=== PATIENT | female | born 1970 | race African-American/Black ===

== ENCOUNTER 2017-08-30 03:34 | Emergency (ER) | payer MEDICAID ==
[~2017-08-30] VITALS: Ht 160 cm; Wt 77.0 kg
[2017-08-30] MEDS ORDERED: HYDROCODONE/ACETAMINOPHEN 5/325MG TABLET PO ONE (06:30)
[2017-08-30] MEDS ORDERED: IBUPROFEN 600MG TABLET PO ONE (06:30)
[2017-08-30 07:12] LABS: BASOPHILS % 0.5 % (0.0-2.0); EOSINOPHILS % 0.2 % (0.0-5.0); HEMATOCRIT. 43.8 % (36.0-48.0); HEMOGLOBIN. 14.3 g/dL (12.0-16.0); LYMPHOCYTES % 14.2 % (20.0-50.0); MEAN CORPUSCULAR HEMOGLOBIN 27.7 pg (28.0-32.0); MEAN CORPUSCULAR VOLUME 84.5 fL (81.0-99.0); MEAN PLATELET VOLUME 10.1 fl (7.4-10.4); MONOCYTES % 6.1 % (2.0-8.0); PLATELET 204 x1000/uL (130-400); RED BLOOD CELL COUNT 5.18 mill/uL (4.2-5.4); RED CELL DISTRIBUTION WIDTH 14.4 % (11.6-14.6)
[2017-08-30 07:14] LABS: CHLORIDE 106 mEq/L (98-107)
[2017-08-30 07:52] LABS: HCG SCREEN NEGATIVE
[2017-08-30 10:00] VITALS: BP 145/67
== END 2017-08-30 10:00 | disposition home or self-care (01) ==
LOC: ER 04:16
DX: S06.891A Other specified intracranial injury with loss of consciousness of 30 minutes or less, initial encounter (principal); S02.2XXA Fracture of nasal bones, initial encounter for closed fracture; S62.397A Other fracture of fifth metacarpal bone, left hand, initial encounter for closed fracture; S50.311A Abrasion of right elbow, initial encounter; J45.909 Unspecified asthma, uncomplicated; Z90.49 Acquired absence of other specified parts of digestive tract; V43.52XA Car driver injured in collision with other type car in traffic accident, initial encounter; Y93.89 Activity, other specified; Y92.488 Other paved roadways as the place of occurrence of the external cause
CPT/HCPCS: 29125; 36415; 70450; 70486; 72070; 72100; 72125; 73080; 73110; 73130; 80053; 84703; 85025; 99285; Z7610; A4565; L0172

== ENCOUNTER 2021-12-14 04:16 | Emergency (ER) | payer MEDICAID ==
[~2021-12-14] VITALS: Ht 160 cm; Wt 77.0 kg
[2021-12-14] MEDS ORDERED: ONDANSETRON HCL 4MG/2ML INJ IM ONE (08:15)
[2021-12-14] MEDS ORDERED: POLY10DR EACHEYE (08:16)
[2021-12-14] MEDS ORDERED: POLYMYXIN B SULFATE/TMP 10ML BOTTLE BOTHEYE SCH (08:30)
[2021-12-14] MEDS ORDERED: IBUPROFEN 400MG TABLET PO ONE (08:30)
[2021-12-14] MEDS ORDERED: ONDANSETRON 4MG ODT PO ONE (08:30)
[2021-12-14 08:31] VITALS: BP 134/112
== END 2021-12-14 08:57 | disposition home or self-care (01) ==
LOC: ER 04:16
DX: H10.9 Unspecified conjunctivitis (principal); J02.9 Acute pharyngitis, unspecified; R11.0 Nausea; I10 Essential (primary) hypertension; Z88.0 Allergy status to penicillin
CPT/HCPCS: 99283; Q0162